=== PATIENT | female | born 2000 | race Two or more races ===

== ENCOUNTER 2022-03-27 09:52 | Emergency (ER) ==
[~2022-03-27] VITALS: Ht 172.7 cm; Wt 70.0 kg
== END 2022-03-27 12:12 | disposition left against medical advice (07) ==
LOC: M ED 09:52
DX: Z53.21 Procedure and treatment not carried out due to patient leaving prior to being seen by health care provider (principal)

== ENCOUNTER → 2022-04-10 | Outpatient (CLI) | payer OTHER | LOC: M WUC 13:51 | PROVIDERS: ATTEND Physician Assistant | DX: S60.051A Contusion of right little finger without damage to nail, initial encounter (principal); X58.XXXA Exposure to other specified factors, initial encounter; Y92.9 Unspecified place or not applicable ==

== ENCOUNTER → 2023-02-13 | Outpatient (CLI) | payer OTHER | LOC: M WUC 12:38 | PROVIDERS: ATTEND Physician Assistant | DX: M25.512 Pain in left shoulder (principal) ==

== ENCOUNTER → 2023-08-15 | Outpatient (REF) | payer OTHER | LOC: M SFHCLERA 16:52 | PROVIDERS: ATTEND Physician Assistant | DX: J02.9 Acute pharyngitis, unspecified (principal) ==

== ENCOUNTER 2024-02-09 13:41 | Inpatient (IN) | payer OTHER ==
[~2024-02-09] VITALS: Ht 172.7 cm; Wt 77.3 kg
[2024-02-09 14:15] LABS: HEMATOCRIT 39.4 % (36.0-47.0); HEMOGLOBIN 13.7 g/dl (12.0-15.5); MEAN CORPUSCULAR HEMOGLOBIN 31.8 pg (27.0-33.0); MEAN CORPUSCULAR HGB CONC 34.8 g/dl (32.0-36.5); MEAN CORPUSCULAR VOLUME 91.4 fl (80.0-96.0); PLATELET COUNT, AUTOMATED 231 10^3/uL (150-450); RED BLOOD COUNT 4.31 10^6/uL (4.00-5.40); WHITE BLOOD COUNT 6.6 10^3/uL (4.0-10.0)
[2024-02-09 14:44] LABS: ETHYL ALCOHOL (ETHANOL) < 0.003 % (0.000-0.010)
[2024-02-09 14:45] LABS: SALICYLATE LEVEL < 3.0 MG/DL (<30)
[2024-02-09 14:46] LABS: ALBUMIN 4.6 G/DL (3.2-5.2); ALKALINE PHOSPHATASE 53 U/L (46-116); ALT/SGPT 23 U/L (7.0-40); AST/SGOT 28 U/L (<34); BILIRUBIN,DIRECT 0.5 MG/DL (<0.4); BILIRUBIN,TOTAL 1.6 MG/DL (0.3-1.2); BLOOD UREA NITROGEN 10 MG/DL (9-23); CARBON DIOXIDE LEVEL 21 MMOL/L (20-31); CHLORIDE LEVEL 107 MMOL/L (98-107); CREATININE FOR GFR 1.23 MG/DL (0.55-1.30); GLOMERULAR FILTRATION RATE 58.1 (>60); GLUCOSE, FASTING 96 MG/DL (60-100); POTASSIUM SERUM 3.4 MMOL/L (3.5-5.1); SODIUM LEVEL 139 MMOL/L (136-145); TOTAL PROTEIN 7.8 G/DL (5.7-8.2)
[2024-02-09 14:54] LABS: AMPHETAMINES LEVEL URINE NEGATIVE (NEGATIVE); BARBITURATES URINE NEGATIVE (NEGATIVE); BENZODIAZEPINES URINE NEGATIVE (NEGATIVE); COCAINE METABOLITE URINE NEGATIVE (NEGATIVE)
[2024-02-09 14:54] LABS: HCG, SERUM QUALITATIVE NEGATIVE (NEGATIVE)
[2024-02-09 14:55] LABS: METHADONE URINE NEGATIVE (NEGATIVE); OPIATES URINE NEGATIVE (NEGATIVE); PHENCYCLIDINE URINE NEGATIVE (NEGATIVE)
[2024-02-09 15:01] LABS: CANNABINOIDS URINE POSITIVE (NEGATIVE)
[2024-02-09] MEDS: NICOTINE 21MG/24HR 1 EA TRANSDERMAL TD ONE (15:22)
[2024-02-09] MEDS: OLANZapine ORAL DISINTEGRATING TAB 5MG PO ONE (16:30)
[2024-02-09] MEDS: LORazepam 2 MG TAB PO STA (16:30)
[2024-02-09] MEDS: LORazepam 2 MG/ML 1ML VIAL IM ONE (16:50)
[2024-02-09] MEDS: OLANZapine INTRAMUSCULAR 10MG VIAL IM ONE (16:51)
[2024-02-10] MEDS ORDERED: MAALOX 30 ML SUSP *UDC PO PRN (09:50)
[2024-02-10] MEDS ORDERED: traZODone 50 MG TAB PO PRN (09:50)
[2024-02-10] MEDS ORDERED: LORazepam 1 MG TAB PO PRN (09:50)
[2024-02-10] MEDS ORDERED: MOM 30ML SUSPENSION UDC PO PRN (09:50)
[2024-02-10 12:30] VITALS: BP 131/76; TEMP 98.7; O2SAT 96
[2024-02-10] MEDS: diphenhydrAMINE 25MG CAP PO PRN (17:42)
[2024-02-10] MEDS: IBUPROFEN 400MG TAB PO PRN (17:42)
[2024-02-11 06:56] VITALS: TEMP 97.2; O2SAT 100
[2024-02-11 07:12] VITALS: BP 125/81
[2024-02-11] MEDS: OLANZapine 5 MG TAB PO SCH (11:30)
[2024-02-11] MEDS: NICOTINE 21MG/24HR 1 EA TRANSDERMAL TD SCH (11:31)
[2024-02-11] MEDS ORDERED: BENZTROPINE 0.5 MG TAB PO PRN (12:55)
[2024-02-11 16:25] VITALS: BP 131/75; TEMP 96; O2SAT 100
[2024-02-12 06:26] VITALS: BP 137/72; TEMP 97.5; O2SAT 99
[2024-02-12 16:03] VITALS: BP 140/94; TEMP 96.9; O2SAT 100
[2024-02-12] MEDS: ACETAMINOPHEN TAB 650MG DOSE (2X325MG) PO PRN (16:15)
[2024-02-12] MEDS: zolPIDEM TARTRATE 5 MG TAB PO PRN (20:23)
[2024-02-12] MEDS: PALIPERIDONE 3MG ER TAB (INVEGA) PO SCH (20:24)
[2024-02-13 06:14] VITALS: BP 147/65; TEMP 98.1; O2SAT 98
[2024-02-13 07:29] LABS: CHOLESTEROL RISK RATIO 2.56 (<5); HDL CHOLESTEROL 43.3 MG/DL (>40); LDL CHOLESTEROL 58.9 MG/DL (<100); NON-HDL-C 67.7 MG/DL
[2024-02-13] MEDS ORDERED: BENZ0.5T2 PO (08:35)
[2024-02-13] MEDS ORDERED: OLAN1TAB20 PO (08:35)
[2024-02-13] MEDS ORDERED: NICO21PAT TD (08:35)
== END 2024-02-13 10:10 | disposition home or self-care (01) | DRG 885 ==
LOC: M ED 13:41 → M ED INP 02-10 09:48 → M PSY 02-10 12:30
PROVIDERS: ADMIT Student in an Organized Health Care Education/Training Program; ATTEND Student in an Organized Health Care Education/Training Program
DX: F31.9 Bipolar disorder, unspecified (principal); F12.10 Cannabis abuse, uncomplicated; Z56.0 Unemployment, unspecified; Z63.5 Disruption of family by separation and divorce; Z11.52 Encounter for screening for COVID-19